=== PATIENT | female | born 1940 | race Caucasian/White ===

== ENCOUNTER 2019-12-03 18:43 | Inpatient (IN) | payer MEDICARE, BC, OTHER ==
[2019-12-03] MEDS ORDERED: Diltiazem 50 MG/10 ML SDV IVPUSH STA (19:21)
--- NOTE | 2019-12-03 19:28 | EDM.PDOC ---
ED HPI GENERAL MEDICAL PROBLEM - General Chief Complaint: Chest Pain Stated Complaint: [facility] Time Seen by Provider: 12/03/19 19:03 Source of Information: Reports: Patient History Limitations: Reports: No Limitations - History of Present Illness INITIAL COMMENTS - FREE TEXT/NARRATIVE: Mrs. Marrero is a very pleasant 79-year-old woman with a past medical history significant for paroxysmal atrial fibrillation, first diagnosed about 10 years ago, on Xarelto, but on no regular rate-limiting agent other than Cardizem 30 mg po BID that she is to take on an as-needed basis for a HR of >70, who now presents the ED by EMS after developing her typical symptoms of atrial fibrillation this morning, including both rapid and slow palpitations, sharp/heavy retrosternal chest pain, slight dyspnea on exertion, a headache, tingling of her fingers and toes, and watery diarrhea. She states that she gets these symptoms about every month, but that they typically last about 2 hours before resolving on their own. Today's is different, because it has persisted all day. The patient cannot recall if she took her Cardizem today or not. Here in the ED, the patient's initial BP is found to be low at 82/61, with tachycardia of 134 bpm. She is afebrile, saturating 100% on room air. Other than today's symptoms, the patient denies having a recent fever, chills, sore throat, ear pain, nasal or sinus congestion, cough, dyspnea, chest pain, palpitations, nausea, vomiting, constipation, diarrhea, abdominal pain, urinary symptoms, recent weight gain or weight loss, recent bloody bowel movements or black bowel movements, recent joint aches, headaches, or rashes. The patient's PCP is Dr. Angel Ashby, in [place]. She does not have a Sales Lead Generator. Left Chest Pain Score (Numeric/FACES): 3 - Related Data Allergies Allergy/AdvReac Type Severity Reaction Status Date / Time levofloxacin [From Levaquin] Allergy Severe COULDNT Verified 12/03/19 19:22 BREATH promethazine HCl Allergy Severe Anxiety Verified 12/03/19 19:22 [From Phenergan] CRAB Allergy Severe Hives Uncoded 12/03/19 19:22 GREEN DYE PILLS Allergy Severe Hives Uncoded 12/03/19 19:22 Home Meds: Home Meds Cholecalciferol (Vitamin D3) [Vitamin D3] 2,000 units PO DAILY 12/03/19 [Hist ory] Denosumab [Prolia] 60 mg IM ASDIRECTED 12/03/19 [History] Divalproex Sodium [Depakote] 250 mg PO BID 12/03/19 [History] Furosemide [Lasix] 40 mg PO DAILY 12/03/19 [History] Insulin Glargine,Hum.Rec.Anlog [Lantus Solostar] 18 units SUBCUT DAILY 12/03/19 [History] Ipratropium [Atrovent 0.06% Nasal [place]] 2 puff CARI QID PRN 12/03/19 [History] Morphine Sulfate [Morphine Sulfate ER] 15 mg PO DAILY PRN 12/03/19 [History] Olmesartan/Hydrochlorothiazide [Olmesartan-Hctz 40-25 mg Tab] 1 tab PO DAILY 12/03/19 [History] Omeprazole 20 mg PO DAILY PRN 12/03/19 [History] Ondansetron [Zofran] 4 mg PO TID PRN 12/03/19 [History] Rivaroxaban [Xarelto] 10 mg PO DAILY 12/03/19 [History] Thiamine HCl [Vitamin B-1] 50 mg PO DAILY 12/03/19 [History] buPROPion [buPROPion XL] 150 mg PO DAILY 12/03/19 [History] dilTIAZem HCL [Cardizem] 30 mg PO BID PRN 12/03/19 [History] lamoTRIgine [Lamotrigine] 50 mg PO BEDTIME 12/03/19 [History] polyethylene glycoL 3350 [MiraLAX] 17 gm PO DAILY PRN 12/03/19 [History] traZODone HCl [Trazodone HCl] 50 mg PO BEDTIME PRN 12/03/19 [History] Past Medical History Cardiovascular History: Reports: Afib (paroxysmal), Heart Failure (mild) Gastrointestinal History: Reports: GERD Musculoskeletal History: Reports: Osteoarthritis Neurological History: Reports: Neuropathy, Diabetic Psychiatric History: Reports: Anxiety, Depression, Other (See Below) (Insomnia) Endocrine/Metabolic History: Reports: Diabetes, Type II, Obesity/BMI 30+ Oncologic (Cancer) History: Reports: Bladder (s/p tumor excision), Pancreatic (s/p tail excision) - Past Surgical History HEENT Surgical History: Reports: Cataract Surgery (bilateral) Cardiovascular Surgical History: Reports: Other (See Below) (Left Port-A-Cath) Female Surgical History: Reports: Tubal Ligation Oncologic Surgical History: Reports: Other (See Below) (Bladder tumor excised. Tumor in tail of pancreas excised.) Social & Family History - Tobacco Use Smoking Status *Q: Never Smoker - Alcohol Use Alcohol Use History: No - Recreational Drug Use Recreational Drug Use: No - Living Situation & Occupation Living situation: Reports: , with Family Occupation: Retired ED ROS GENERAL - Review of Systems Review Of Systems: Comprehensive ROS is negative, except as noted in HPI. ED EXAM, GENERAL - Physical Exam Exam: See Below Exam Limited By: No Limitations General Appearance: Alert, WD/WN, No Apparent Distress Eye Exam: Bilateral Eye: EOMI, Normal Inspection Ears: Normal External Exam, Hearing Grossly Normal Nose: Normal Inspection Throat/Mouth: Normal Inspection, Normal Lips, Normal Voice, No Airway Compromise Head: Atraumatic, Normocephalic Neck: Normal Inspection, Full Range of Motion Respiratory/Chest: No Respiratory Distress, Lungs Clear, Normal Breath Sounds, No Accessory Muscle Use Cardiovascular: Normal Peripheral Pulses, No Gallop, No JVD, No Murmur, No Rub, Tachycardia, Irregularly Irregular Peripheral Pulses: 3+: Radial (L), Radial (R) GI/Abdominal: Normal Bowel Sounds, Soft, Non-Tender, No Organomegaly, No Distention, No Abnormal Bruit, No Mass (Female) Exam: Deferred Rectal (Female) Exam: Deferred Back Exam: Normal Inspection, Full Range of Motion, NT Extremities: Normal Inspection, Normal Range of Motion, Normal Capillary Refill Neurological: Alert, Oriented, Normal Cognition, No Motor/Sensory Deficits Psychiatric: Normal Affect Skin Exam: Warm, Dry, Intact, Normal Color, No Rash EKG INTERPRETATION EKG Date: 12/03/19 Time: 19:39 Rhythm: A-Fib Rate (Beats/Min): 125 [place]: Normal P-Wave: Present QRS: Normal ST-T: Normal QT: Prolonged (QTc 499 ms) Comparison: NA - No Prior EKG Course - Vital Signs Last Recorded V/S: Last Vital Signs Temp 36.9 C 12/03/19 19:01 Pulse 134 H 12/03/19 19:01 Resp 20 12/03/19 19:01 BP 82/61 L 12/03/19 19:01 Pulse Ox 100 12/03/19 19:01 - Orders/Labs/Meds Orders: Active Orders 24 hr Category Date Time Status Patient Status [ADT] Routine ADT 12/03/19 22:32 Active Bedrest Bathroom Privileges [RC] ASDIRECTED Care 12/03/19 22:31 Active Blood Glucose Check, Bedside [RC] TIDAC Care 12/03/19 22:31 Active Blood Glucose Check, Bedside [RC] TIDMEALS Care 12/03/19 22:31 Active Cardiac Monitoring [RC] CONTINUOUS Care 12/03/19 22:34 Active EKG Documentation Completion [RC] STAT Care 12/03/19 19:20 Active Height and Weight [RC] DAILY Care 12/03/19 22:31 Active Intake and Output [RC] QSHIFT Care 12/03/19 22:34 Active Oxygen Therapy [RC] PRN Care 12/03/19 22:32 Active Up With Assistance [RC] ASDIRECTED Care 12/03/19 22:31 Active VTE/DVT Education [RC] PER UNIT ROUTINE Care 12/03/19 22:32 Active Vital Signs [RC] Q2H Care 12/03/19 22:31 Active Consult to Case Management/Circuit Board Assembler [CONS] Cons 12/03/19 22:31 Active Routine OT Evaluation and Treatment [CONS] Routine Cons 12/03/19 22:31 Active PT Evaluation and Treatment [CONS] Routine Cons 12/03/19 22:31 Active Heart Healthy Diet [DIET] Diet 12/03/19 Breakfast Active Chest 2V [CR] Stat Exams 12/03/19 19:20 Taken BASIC METABOLIC PANEL,BMP [CHEM] AM Lab 12/04/19 05:11 Ordered CBC WITH AUTO DIFF [HEME] AM Lab 12/04/19 05:11 Ordered MAGNESIUM [CHEM] AM Lab 12/04/19 05:11 Ordered MAGNESIUM [CHEM] Stat Lab 12/03/19 22:31 Ordered PHOSPHORUS [CHEM] AM Lab 12/04/19 05:11 Ordered PHOSPHORUS [CHEM] Stat Lab 12/03/19 22:31 Ordered Diltiazem [Cardizem] 100 mg Med 12/03/19 22:15 Active Sodium Chloride 0.9% [Normal Saline] 100 ml IV TITRATE Ondansetron [Zofran] Med 12/03/19 22:31 Active 4 mg IV Q6H PRN Anticoagulation Contraindications VTE [AST] Per Unit Oth 12/03/19 22:31 Ordered Routine Resuscitation Status Routine Resus Stat 12/03/19 22:31 Ordered Medication Orders Diltiazem HCl 100 mg/ Sodium (Chloride) 100 mls @ 15 mls/hr IV TITRATE ALIYAH; Protocol Ondansetron HCl (Zofran) 4 mg IV Q6H PRN PRN Reason: Nausea/Vomiting Labs: Laboratory Tests 12/03/19 12/03/19 12/03/19 Range/Units 19:30 19:30 19:30 WBC 8.86 (3.98-10.04) K/mm3 RBC 3.77 L (3.98-5.22) M/mm3 Hgb 11.1 L (11.2-15.7) gm/dl Hct 34.6 (34.1-44.9) % MCV 91.8 (79.4-94.8) fl MCH 29.4 (25.6-32.2) pg MCHC 32.1 L (32.2-35.5) g/dl RDW Std Deviation 42.6 (36.4-46.3) fL Plt Count 403 H (182-369) K/mm3 MPV 10.1 (9.4-12.3) fl Neut % (Auto) 65.5 (34.0-71.1) % Lymph % (Auto) 24.7 (19.3-51.7) % [place] % (Auto) 9.3 (4.7-12.5) % Eos % (Auto) 0 L (0.7-5.8) Baso % (Auto) 0.3 (0.1-1.2) % Neut # (Auto) 5.80 (1.56-6.13) K/mm3 Lymph # (Auto) 2.19 (1.18-3.74) K/mm3 [place] # (Auto) 0.82 H (0.24-0.36) K/mm3 Eos # (Auto) 0.00 L (0.04-0.36) K/mm3 Baso # (Auto) 0.03 (0.01-0.08) K/mm3 Sodium 132 L (136-145) mEq/L Potassium 3.9 (3.5-5.1) mEq/L Chloride 96 L (98-107) mEq/L Carbon Dioxide 24 (21-32) mEq/L Anion Gap 15.9 H (5-15) BUN 25 H (7-18) mg/dL Creatinine 1.3 H (0.55-1.02) mg/dL Est Cr Clr Drug Dosing TNP Estimated GFR (MDRD) 39 (>60) mL/min BUN/Creatinine Ratio 19.2 H (14-18) Glucose 178 H (83-115) mg/dL Calcium 9.0 (8.5-10.1) mg/dL Magnesium 2.3 (1.8-2.4) mg/dl Total Bilirubin 0.2 (0.2-1.0) mg/dL AST 44 H (15-37) U/L ALT 170 H (14-59) U/L Alkaline Phosphatase 133 H (46-116) U/L Troponin I < 0.017 (0.00-0.056) ng/mL NT-Pro-B Natriuret Pep 351 (0-450) pg/mL Total Protein 7.2 (6.4-8.2) g/dl Albumin 3.4 (3.4-5.0) g/dl Globulin 3.8 gm/dL Albumin/Globulin Ratio 0.9 L (1-2) COVID-19 (JITENDRA) (NEGATIVE) 12/03/19 Range/Units 22:30 WBC (3.98-10.04) K/mm3 RBC (3.98-5.22) M/mm3 Hgb (11.2-15.7) gm/dl Hct (34.1-44.9) % MCV (79.4-94.8) fl MCH (25.6-32.2) pg MCHC (32.2-35.5) g/dl RDW Std Deviation (36.4-46.3) fL Plt Count (182-369) K/mm3 MPV (9.4-12.3) fl Neut % (Auto) (34.0-71.1) % Lymph % (Auto) (19.3-51.7) % [place] % (Auto) (4.7-12.5) % Eos % (Auto) (0.7-5.8) Baso % (Auto) (0.1-1.2) % Neut # (Auto) (1.56-6.13) K/mm3 Lymph # (Auto) (1.18-3.74) K/mm3 [place] # (Auto) (0.24-0.36) K/mm3 Eos # (Auto) (0.04-0.36) K/mm3 Baso # (Auto) (0.01-0.08) K/mm3 Sodium (136-145) mEq/L Potassium (3.5-5.1) mEq/L Chloride (98-107) mEq/L Carbon Dioxide (21-32) mEq/L Anion Gap (5-15) BUN (7-18) mg/dL Creatinine (0.55-1.02) mg/dL Est Cr Clr Drug Dosing Estimated GFR (MDRD) (>60) mL/min BUN/Creatinine Ratio (14-18) Glucose (83-115) mg/dL Calcium (8.5-10.1) mg/dL Magnesium (1.8-2.4) mg/dl Total Bilirubin (0.2-1.0) mg/dL AST (15-37) U/L ALT (14-59) U/L Alkaline Phosphatase (46-116) U/L Troponin I (0.00-0.056) ng/mL NT-Pro-B Natriuret Pep (0-450) pg/mL Total Protein (6.4-8.2) g/dl Albumin (3.4-5.0) g/dl Globulin gm/dL Albumin/Globulin Ratio (1-2) COVID-19 (JITENDRA) Negative (NEGATIVE) Meds: Medications Generic Name Dose Route Start Last Admin Trade Name Freq PRN Reason Stop Dose Admin Diltiazem HCl 100 mg/ Sodium 100 mls @ 15 mls/hr 12/03/19 22:15 Chloride IV TITRATE ALIYAH Protocol 15 MG/HR Ondansetron HCl 4 mg 12/03/19 22:31 Zofran IV Q6H PRN Nausea/Vomiting Discontinued Medications Generic Name Dose Route Start Last Admin Trade Name Freq PRN Reason Stop Dose Admin Diltiazem HCl 5 mg 12/03/19 19:21 12/03/19 19:33 Cardizem IVPUSH 12/03/19 19:22 5 mg ONETIME STA Administration Diltiazem HCl 100 mg/ Sodium 100 mls @ 10 mls/hr 12/03/19 19:30 12/03/19 22:10 Chloride IV 15 mg/hr TITRATE ALIYAH 15 mls/hr Titration Protocol 10 MG/HR Sodium Chloride 500 mls @ 1,000 mls/hr 12/03/19 19:29 12/03/19 19:39 Normal Saline IV 12/03/19 19:58 1,000 mls/hr .BOLUS ONE Administration Sodium Chloride 500 mls @ 1,000 mls/hr 12/03/19 21:54 12/03/19 22:33 Normal Saline IV 12/03/19 22:23 1,000 mls/hr .BOLUS ONE Administration - Re-Assessments/Exams Free Text/Narrative Re-Assessment/Exam: 12/03/19 19:22 As above, the patient has an approximately 10-year history of paroxysmal atrial fibrillation, on Xarelto, but not on a rate controlling agent on a regular basis, rather, she is prescribed Cardizem 30 mg po BID prn HR >70, now here for her usual symptoms of atrial fibrillation with RVR, including rapid palpitations, retrosternal chest pain, a headache, tingling of her fingers and toes, and watery diarrhea. She is hypotensive and tachycardic, and her manager endoscopy indicates rapid atrial fibrillation, however, she denies feeling lightheaded, therefore I am not certain that her blood pressure is accurate. Other than a rapid and irregularly irregular heart rate, her physical exam is unremarkable. I have ordered a work-up that includes blood work, a chest x-ray, and an ECG, and in the meantime, the patient will be given diltiazem 5 mg IVP, followed by a diltiazem drip at 10 mg/h. She will also be given a 500 mL bolus of IV fluid. 12/03/19 21:50 Two-view chest radiograph appears to be grossly normal. The cardiac silhouette is within normal limits. No pulmonary vascular congestion. No pleural effusions. No focal infiltrate. No pneumothorax. Left-sided Port-A-Cath noted. Formal read per the Radiologist pending. The patient's CBC is remarkable for a Hgb slightly depressed at 11.1, but with a Hct within normal limits at 34.6. Her platelets are mildly elevated at 403,000, with the remainder of her CBC being unremarkable. Her CMP is remarkable for a sodium mildly depressed at 132, and an anion gap mildly elevated at 15.9, but with a bicarbonate normal at 24. Her BUN/Cr are mildly elevated at 25/1.3. Her blood glucose is elevated at 178. Her AST/ALT are elevated at 44/170, respectively, and her alkaline phosphatase is mildly elevated at 133, with the remainder of her CMP being unremarkable. Her magnesium level is within normal limits at 2.3. Her troponin is undetectably low. Her BNP is within normal limits at 351. Following a 500 mL bolus of NS, the patient's BP is up to 104/75, with a HR of 107. She still appears to be in atrial fibrillation on the manager endoscopy. I will order a second 500 mL bolus of IV fluid and recommend admission to the hospital. 12/03/19 22:06 Test results and my plan to admit the patient discussed with the patient. The patient is agreeable. I will increase her diltiazem drip to 15 mg/h. Dr. Heard, already in the ED, is aware of the patient's admission, and will evaluate her shortly. Departure - Departure Time of Disposition: 22:06 Disposition: Admitted As Inpatient 65 Condition: Good Clinical Impression: Atrial fibrillation with rapid ventricular response, Hypotension, Hyperglycemia due to type 2 diabetes mellitus Sepsis Event Note (ED) - Evaluation Sepsis Screening Result: No Definite Risk - Focused Exam Vital Signs: Vital Signs Temp Pulse Resp BP Pulse Ox 12/03/19 19:01 36.9 C 134 H 20 82/61 L 100 - My Orders Last 24 Hours: My Active Orders 12/03/19 19:20 EKG Documentation Completion [RC] STAT Chest 2V [CR] Stat 12/03/19 22:15 Diltiazem [Cardizem] 100 mg Sodium Chloride 0.9% [Normal Saline] 100 ml IV TITRATE - Assessment/Plan Last 24 Hours: My Active Orders 12/03/19 19:20 EKG Documentation Completion [RC] STAT Chest 2V [CR] Stat 12/03/19 22:15 Diltiazem [Cardizem] 100 mg Sodium Chloride 0.9% [Normal Saline] 100 ml IV TITRATE
[2019-12-03] MEDS ORDERED: Sodium Chloride 0.9% 500 ML IV ONE ×2 (19:29→21:54)
[2019-12-03] MEDS ORDERED: Diltiazem 100 MG in Sodium Chloride 0.9% 100 ML IV SCH ×2 (19:30→22:15)
--- NOTE | 2019-12-03 22:15 | PCM.HP.2 ---
H&P History of Present Illness - General Date of Service: 12/03/19 Admit Problem/Dx: Atrial fibrillation with rapid ventricular rate - History of Present Illness Initial Comments - Free Text/Narative: This is an 79 year old female with past medical history of atrial fibrillation on Xarelto, diabetes and hypertension who comes to the ED brought via EMS for chest pain and palpitations as well as shortness of breath. As per patient she was in her usual state of health until this morning when she had some visitors and started feeling a strange sensation on her chest after which she decided to go lay down. Once she lay down she started noticing significant chest pain, described as stabbing, located retrosternally without radiation, graded 4-5/10, associated with shortness of breath and palpitations. EMS was called, upon arrival patient had a BP of 69/47 with pulse of 157. En route VS BP 74/50, rate 126. Left Chest Pain Score (Numeric/FACES): 3 - Related Data Allergies/Adverse Reactions: Allergies Allergy/AdvReac Type Severity Reaction Status Date / Time levofloxacin [From Levaquin] Allergy Severe COULDNT Verified 12/03/19 19:22 BREATH promethazine HCl Allergy Severe Anxiety Verified 12/03/19 19:22 [From Phenergan] CRAB Allergy Severe Hives Uncoded 12/03/19 19:22 GREEN DYE PILLS Allergy Severe Hives Uncoded 12/03/19 19:22 Home Medications: Home Meds Ipratropium [Atrovent 0.06% Nasal [place]] 2 puff CARI QID PRN 12/03/19 [History] buPROPion [buPROPion XL] 150 mg PO DAILY 12/03/19 [History] dilTIAZem HCL [Cardizem] 30 mg PO BID PRN 12/03/19 [History] Past Medical History HEENT History: Reports: Impaired Vision Cardiovascular History: Reports: Afib (paroxysmal), Heart Failure (mild) Gastrointestinal History: Reports: GERD Other Gastrointestinal History: Pancreatic cancer Genitourinary History: Reports: Diabetic Nephropathy MAGNETIC OBSERVER History: Reports: Musculoskeletal History: Reports: Osteoarthritis Neurological History: Reports: Neuropathy, Diabetic Psychiatric History: Reports: Anxiety, Depression, Other (See Below) (Insomnia) Endocrine/Metabolic History: Reports: Diabetes, Type II, Obesity/BMI 30+ Oncologic (Cancer) History: Reports: Bladder (s/p tumor excision), Pancreatic (s/p tail excision) - Infectious Disease History Infectious Disease History: Reports: Chicken Pox, Measles - Past Surgical History HEENT Surgical History: Reports: Cataract Surgery (bilateral) Cardiovascular Surgical History: Reports: Other (See Below) (Left Port-A-Cath) Female Surgical History: Reports: Tubal Ligation Oncologic Surgical History: Reports: Other (See Below) (Bladder tumor excised. Tumor in tail of pancreas excised.) Social & Family History - Family History Family Medical History: Noncontributory - Tobacco Use Smoking Status *Q: Never Smoker - Recreational Drug Use Recreational Drug Use: No - Living Situation & Occupation Living situation: Reports: , with Family Occupation: Retired H&P Review of Systems - Review of Systems: Review Of Systems: See Below General: Denies: Fever, Chills, Malaise, Weakness, Fatigue, Night Sweats, [place] phoresis, Decreased Appetite, Weight Loss, Weight Gain HEENT: Denies: Post Nasal Drip, Sinus Congestion, Sore Throat, Vertigo, Visual Changes Pulmonary: Reports: Shortness of Breath. Denies: Wheezing, Pleuritic Chest Pain, Cough, Sputum, Hemoptysis Cardiovascular: Reports: Chest Pain, Palpitations. Denies: Dyspnea on Exertion, Orthopnea, PND, Edema, Lightheadedness, Syncope, Claudication, Blood Pressure Problem Gastrointestinal: Denies: Abdominal Pain, Anorexia, Black Stool, Bloody Stool, Constipation, Diarrhea, Decreased Appetite, Difficulty Swallowing, Distension, Flatus, Hematemesis, Hematochezia, Melena, Mucous in Stool, Nausea, Stool Incontinence, Vomiting Genitourinary: Denies: Dysuria, Frequency, Burning, Pain, Urgency, Incontinence Musculoskeletal: Denies: Joint Pain, Joint Swelling, Muscle Pain, Muscle Stiffness Skin: Reports: Pallor, Diaphoresis. Denies: Cyanosis, Jaundice, Mottled, Dryness, Bruising Psychiatric: Denies: Confusion, Depression, Mood Lability, Anxiety, Agitation Neurological: Denies: Dizziness, Headache, Numbness, Paresthesia Hematologic/Lymphatic: Denies: Anemia, Easy Bleeding, Easy Bruising Exam - Exam Exam: See Below - Vital Signs Vital Signs: Last Vital Signs Temp 98.5 F 12/03/19 19:01 Pulse 134 H 08/18/20 19:01 Resp 20 12/03/19 19:01 BP 82/61 L 12/03/19 19:01 Pulse Ox 100 12/03/19 19:01 - Exam General: Alert, Oriented, Cooperative. No: Mild Distress HEENT: Conjunctiva Clear, EACs Clear, EOMI, Hearing Intact, Mucosa Moist & [place] Neck: Supple, Trachea Midline, +2 Carotid Pulse wo Bruit, Full Range of Motion. No: Lymphadenopathy, Carotid Bruit, Thyromegaly Lungs: Clear to Auscultation, Normal Respiratory Effort. No: Decreased Breath Sounds, Crackles, Rales, Rhonchi, Rub, Stridor, Wheezing Cardiovascular: Regular Rate, Regular Rhythm. No: Systolic Murmur, Diastolic Murmur, Rubs, Gallop/S3, Gallop/S4 GI/Abdominal Exam: Normal Bowel Sounds, Soft, Non-Tender, Distended. No: Guarding, Rigid, Rebound Extremities: Normal Inspection, Normal Range of Motion, Non-Tender, Normal Capillary Refill, Pedal Edema Peripheral Pulses: 2+: Radial (L), Radial (R), Dorsalis Pedis (L), Dorsalis Pedis (R) Skin: Warm, Dry, Intact Neuro Extensive - Mental Status: Alert, Oriented x3 - Patient Data Result Diagrams: 12/03/19 19:30 12/03/19 19:30 Sepsis Event Note - Evaluation Sepsis Screening Result: No Definite Risk - Focused Exam Vital Signs: Vital Signs Temp Pulse Resp BP Pulse Ox 12/03/19 19:01 98.5 F 134 H 20 82/61 L 100 - Problem List (1) Atrial fibrillation with rapid ventricular response SNOMED Code(s): 929246850547871 ICD Code: I48.91 - UNSPECIFIED ATRIAL FIBRILLATION Status: Acute Current Visit: Yes (2) Diabetes mellitus, type II SNOMED Code(s): 80523694 ICD Code: E11.9 - TYPE 2 DIABETES MELLITUS WITHOUT COMPLICATIONS Status: Acute Current Visit: Yes (3) Hypertension SNOMED Code(s): 07505068 ICD Code: I10 - ESSENTIAL (PRIMARY) HYPERTENSION Status: Acute Current Visit: Yes (4) Depression SNOMED Code(s): 51469591 ICD Code: F32.9 - MAJOR DEPRESSIVE DISORDER, SINGLE EPISODE, UNSPECIFIED Status: Acute Current Visit: Yes (5) Chronic anticoagulation SNOMED Code(s): 865345989 ICD Code: Z79.01 - IGNITER CAPPER (CURRENT) USE OF ANTICOAGULANTS Status: Acute Current Visit: Yes (6) Chronic headache SNOMED Code(s): 955502810 ICD Code: R51 - HEADACHE Status: Acute Current Visit: Yes (7) Heart failure SNOMED Code(s): 89818581 ICD Code: I50.9 - HEART FAILURE, UNSPECIFIED Status: Acute Current Visit: Yes (8) Hypotension SNOMED Code(s): 52679272 ICD Code: I95.9 - HYPOTENSION, UNSPECIFIED Status: Acute Current Visit: Yes Problem List Initiated/Reviewed/Updated: Yes Assessment/Plan Comment:: Atrial fibrillation with rapid ventricular response Once in the ED patient with VS 82/61, HR 134x', SatO2 100% on RA Given 5mg bolus of Cardizem Started on Cardizem drip Has been compliant with medications at home EKG with rate between 120-130 PLAN - Continue Cardizem drip - Transition to PO once rate controlled - Request prior echocardiogram - Continue Xarelto Diabetes mellitus, type II Glucose on admission 178 On Lantus 23u AM PLAN - HbA1c - Glucose checks before meals and 2h after - Hypoglycemia protocol - Continue home insulin 12u for now Hypotension in the setting of hypertension BP on admission 82/61 PLAN - Hold home medications for now Depression Denies any suicidal or homicidal ideation Home management with bupropion and trazodone PLAN - Continue home medications Chronic headache On Depakote and Lamotrigine at home No pain right now PLAN - Continue home medications Heart failure, unknown EF No signs of volume overload On Lasix at home PLAN - Hold Lasix due to hypotension - Request prior records PROPHYLAXIS DVT- Continue Xarelto GI- not indicated CODE STATUS: FULL CODE DISPOSITION: Patient will be admitted to the ICU on Cardizem drip for rate control. SOCIAL: Patient lives between [place] and [facility] with house mate Daughter lives across the yard PCP is Dr. Ashby No COVID exposure and has been doing social distancing. - Mortality Measure Prognosis:: Good
[2019-12-03] MEDS ORDERED: Ondansetron 4 MG/2 ML SDV IV PRN (22:31)
[2019-12-04] MEDS: Acetaminophen 325 MG Tab PO PRN ×2 (00:18→04:35)
[2019-12-04] MEDS ORDERED: LORazepam 2 MG/ML SDV IVPUSH ONE (02:32)
[2019-12-04] MEDS: traZODone 50 MG Tab PO PRN ×2 (02:46→20:32)
[2019-12-04] MEDS: Morphine 10 MG/0.5 ML Oral Syringe PO SCH ×4 (03:36→22:12)
[2019-12-04] MEDS ORDERED: Gabapentin 100 MG Cap PO STA (04:28)
--- NOTE | 2019-12-04 09:00 | CR ---
Chest: 2 views of the chest are obtained. Comparison: No prior chest imaging is available. Heart size and mediastinum are normal. Lungs are clear with no acute parenchymal change. Left-sided infusion port is seen. Minimal degenerative change is scattered within the spine with slight scoliosis. Impression: 1. Findings as noted above. 2. Nothing acute is appreciated. Diagnostic code #2 This report was dictated in MDT
[2019-12-04] MEDS: Diltiazem IR 30 MG Tab PO SCH ×2 (12:55→20:32)
--- NOTE | 2019-12-04 14:01 | PCM.PN ---
- General Info Date of Service: 12/04/19 Subjective Update: Feeling OK Tolerating diet No more shortness of breath or chest pain Slept OK BM yesterday - Patient Data Vitals - Most Recent: Last Vital Signs Temp 98 F 12/04/19 12:00 Pulse 134 H 12/03/19 19:01 Resp 16 12/04/19 14:00 BP 116/73 12/04/19 14:00 Pulse Ox 92 L 12/04/19 14:00 Weight - Most Recent: 75.024 kg - Exam General: Alert, Oriented, Cooperative, No Acute Distress HEENT: Pupils Equal, Pupils Reactive, EOMI, Mucous Membr. Moist/[place] Neck: Supple, Trachea Midline, No JVD, No Thyromegaly, +2 Carotid Pulse wo Bruit. No: Lymphadenopathy Lungs: Clear to Auscultation, Normal Respiratory Effort. No: Decreased Breath Sounds, Crackles, Rales, Rhonchi, Rub, Stridor, Wheezing Cardiovascular: Irregular Rhythm, Bradycardia, Tachycardia. No: Murmurs, Gallops, Rubs GI/Abdominal Exam: Normal Bowel Sounds, Soft, Non-Tender, Distended. No: Guarding, Rigid, Rebound, Tender Extremities: Normal Inspection, Non-Tender, Pedal Edema Peripheral Pulses: 2+: Radial (L), Radial (R), Dorsalis Pedis (L), Dorsalis Pedis (R) Neurological: No New Focal Deficit Psy/Mental Status: Alert, Normal Affect, Normal Mood Sepsis Event Note - Evaluation Sepsis Screening Result: No Definite Risk - Problem List & Annotations (1) Atrial fibrillation with rapid ventricular response SNOMED Code(s): 494460678891893 Code(s): I48.91 - UNSPECIFIED ATRIAL FIBRILLATION Status: Acute Current Visit: Yes (2) Diabetes mellitus, type II SNOMED Code(s): 01821734 Code(s): E11.9 - TYPE 2 DIABETES MELLITUS WITHOUT COMPLICATIONS Status: Acute Current Visit: Yes (3) Hypertension SNOMED Code(s): 56719818 Code(s): I10 - ESSENTIAL (PRIMARY) HYPERTENSION Status: Acute Current Visit: Yes (4) Depression SNOMED Code(s): 63013381 Code(s): F32.9 - MAJOR DEPRESSIVE DISORDER, SINGLE EPISODE, UNSPECIFIED Status: Acute Current Visit: Yes (5) Chronic anticoagulation SNOMED Code(s): 196709938 Code(s): Z79.01 - SENIOR LIVING (CURRENT) USE OF ANTICOAGULANTS Status: Acute Current Visit: Yes (6) Chronic headache SNOMED Code(s): 403743632 Code(s): R51 - HEADACHE Status: Acute Current Visit: Yes (7) Heart failure SNOMED Code(s): 41103241 Code(s): I50.9 - HEART FAILURE, UNSPECIFIED Status: Acute Current Visit: Yes (8) Hypotension SNOMED Code(s): 63381190 Code(s): I95.9 - HYPOTENSION, UNSPECIFIED Status: Acute Current Visit: Yes (9) Microcytic hypochromic anemia SNOMED Code(s): 84747815 Code(s): D50.9 - IRON DEFICIENCY ANEMIA, UNSPECIFIED Status: Acute Current Visit: Yes (10) Acute kidney injury SNOMED Code(s): 59891895, 37498812 Code(s): N17.9 - ACUTE KIDNEY FAILURE, UNSPECIFIED Status: Acute Current Visit: Yes (11) Hyponatremia SNOMED Code(s): 55052503 Code(s): E87.1 - HYPO-OSMOLALITY AND HYPONATREMIA Status: Acute Current Visit: Yes - Problem List Review Problem List Initiated/Reviewed/Updated: Yes - Assessment Assessment:: 12/03/2019 Atrial fibrillation with rapid ventricular response Once in the ED patient with VS 82/61, HR 134x', SatO2 100% on RA Given 5mg bolus of Cardizem Started on Cardizem drip Has been compliant with medications at home EKG with rate between 120-130 Diabetes mellitus, type II Glucose on admission 178 On Lantus 23u AM Hypotension in the setting of hypertension BP on admission 82/61 Depression Denies any suicidal or homicidal ideation Home management with bupropion and trazodone Chronic headache On Depakote and Lamotrigine at home No pain right now Heart failure, unknown EF No signs of volume overload On Lasix at home PLAN Patient will be admitted to the ICU on Cardizem drip for rate control. - Continue Cardizem drip - Transition to PO once rate controlled - Request prior echocardiogram - Continue Xarelto - HbA1c - Glucose checks before meals and 2h after - Hypoglycemia protocol - Continue home insulin 12u for now - Hold Lasix due to hypotension 12/04/2019 Continued drip throughout the night, tapered down to 5 this AM Symptoms have been resolved VS trend - BP 82-120/53-84 - Tmax 98.5 - HR 74-101 Labs - WBC 8.86 up to 11.57, few reactive lymphocytes - Hb 11.1 down to 10.5 - Na 132 up to 133 - K 3.9 down to 3.5 - GFR 39 down to 36 - Glucose trend 142-165 Heart healthy diet Home management with PRN Cardizem Patient had leg pain and restless leg overnight that resolved with gabapentin - Plan Plan:: Atrial fibrillation with rapid ventricular response Heart failure, unknown EF - Continue Cardizem drip and transition to PO during the day - Adjust Xarelto to indicated dose - Request prior echocardiogram - Follow-up with cardiology as an outpatient Microcytic hypochromic anemia - Anemia work-up Diabetes mellitus, type II - HbA1c - Glucose checks before meals and 2h after - Hypoglycemia protocol - Continue home insulin 12u for now - Add consistent carb diet to heart healthy Hypotension in the setting of hypertension - Hold home medications for now Depression - Continue home medications Chronic headache - Continue home medications PROPHYLAXIS DVT- Continue Xarelto GI- not indicated CODE STATUS: FULL CODE DISPOSITION: Patient will remain in ICU for Cardizem drip taper.
[2019-12-04] MEDS: Rivaroxaban 15 MG Tab PO SCH (18:17)
[2019-12-05] MEDS: Acetaminophen 325 MG Tab PO PRN ×2 (02:27→19:52)
[2019-12-05] MEDS: Morphine 10 MG/0.5 ML Oral Syringe PO SCH ×3 (05:15→21:29)
[2019-12-05] MEDS: Diltiazem IR 30 MG Tab PO SCH (06:33)
[2019-12-05] MEDS: Metoprolol Tartrate 25 MG Tab PO SCH ×2 (09:10→20:08)
[2019-12-05] MEDS ORDERED: Polyethylene Glycol 3350 Powder 17 GM Packet PO PRN (09:46)
[2019-12-05] MEDS ORDERED: Morphine 15 MG Tab.ER PO PRN (09:46)
[2019-12-05] MEDS ORDERED: Ondansetron 4 MG Tab.DIS PO PRN (09:54)
[2019-12-05] MEDS: Divalproex Sodium Delayed-Release 250 MG Tab.CR PO SCH ×2 (10:43→21:27)
[2019-12-05] MEDS: Thiamine 100 MG Tab PO SCH (10:44)
[2019-12-05] MEDS: buPROPion 150 MG Tab.ER PO SCH (10:44)
[2019-12-05] MEDS: Insulin Lispro 100 Units/ML 3 ML Vial SUBCUT SCH ×3 (10:47→21:30)
[2019-12-05 11:00] LABS: HEMOGLOBIN A1C 8.1 % (4.50-6.20)
[2019-12-05] MEDS: Insulin Glarg,Human.Rec.Analog 100 Unit/ML SUBCUT SCH (11:11)
--- NOTE | 2019-12-05 14:19 | PCM.PN ---
- General Info Date of Service: 12/05/19 Admission Dx/Problem (Free Text): Atrial fibrillation with rapid ventricular rate Subjective Update: Dena is without complaints. She slept well and she is tolerating her diet. Overnight her heart rate was in the 40s with an episode down into the 30s. She is currently getting Cardizem 30 mg 3 times daily. She has converted back to sinus rhythm. Functional Status: Reports: Pain Controlled - Review of Systems General: Reports: No Symptoms HEENT: Reports: No Symptoms Pulmonary: Reports: No Symptoms Cardiovascular: Reports: No Symptoms Gastrointestinal: Reports: No Symptoms Musculoskeletal: Reports: No Symptoms Neurological: Reports: No Symptoms Psychiatric: Reports: No Symptoms - Patient Data Vitals - Most Recent: Last Vital Signs Temp 97.6 F 12/05/19 08:00 Pulse 65 12/05/19 09:10 Resp 19 12/05/19 08:00 BP 132/66 12/05/19 09:10 Pulse Ox 97 12/05/19 08:00 Weight - Most Recent: 75.75 kg I&O - Last 24 Hours: Intake & Output 12/04/19 12/05/19 12/05/19 22:59 06:59 14:59 Intake Total 300 800 100 Output Total 600 550 Balance -300 250 100 Lab Results Last 24 Hours: Laboratory Results - last 24 hr 12/04/19 12/05/19 12/05/19 Range/Units 17:47 10:11 10:11 WBC 8.22 (3.98-10.04) K/mm3 RBC 3.41 L (3.98-5.22) M/mm3 Hgb 9.9 L (11.2-15.7) gm/dl Hct 31.9 L (34.1-44.9) % MCV 93.5 (79.4-94.8) fl MCH 29.0 (25.6-32.2) pg MCHC 31.0 L (32.2-35.5) g/dl RDW Std Deviation 45.0 (36.4-46.3) fL Plt Count 366 (182-369) K/mm3 MPV 9.9 (9.4-12.3) fl Neut % (Auto) 49.9 (34.0-71.1) % Lymph % (Auto) 31.9 (19.3-51.7) % Gage % (Auto) 14.2 H (4.7-12.5) % Eos % (Auto) 2.8 (0.7-5.8) Baso % (Auto) 1.0 (0.1-1.2) % Neut # (Auto) 4.10 (1.56-6.13) K/mm3 Lymph # (Auto) 2.62 (1.18-3.74) K/mm3 Gage # (Auto) 1.17 H (0.24-0.36) K/mm3 Eos # (Auto) 0.23 (0.04-0.36) K/mm3 Baso # (Auto) 0.08 (0.01-0.08) K/mm3 Sodium 134 L (136-145) mEq/L Potassium 4.1 (3.5-5.1) mEq/L Chloride 100 (98-107) mEq/L Carbon Dioxide 26 (21-32) mEq/L Anion Gap 12.1 (5-15) BUN 21 H (7-18) mg/dL Creatinine 1.2 H (0.55-1.02) mg/dL Est Cr Clr Drug Dosing 26.86 mL/min Estimated GFR (MDRD) 43 (>60) mL/min BUN/Creatinine Ratio 17.5 (14-18) Glucose 228 H (83-115) mg/dL POC Glucose 155 H (83-110) mg/dL Hemoglobin A1c (4.50-6.20) % Calcium 8.0 L (8.5-10.1) mg/dL Phosphorus 2.8 (2.6-4.7) mg/dL Magnesium 2.1 (1.8-2.4) mg/dl Total Bilirubin 0.3 (0.2-1.0) mg/dL AST 26 (15-37) U/L ALT 93 H (14-59) U/L Alkaline Phosphatase 94 (46-116) U/L Total Protein 6.4 (6.4-8.2) g/dl Albumin 3.2 L (3.4-5.0) g/dl Globulin 3.2 gm/dL Albumin/Globulin Ratio 1.0 (1-2) 12/05/19 12/05/19 Range/Units 10:11 10:44 WBC (3.98-10.04) K/mm3 RBC (3.98-5.22) M/mm3 Hgb (11.2-15.7) gm/dl Hct (34.1-44.9) % MCV (79.4-94.8) fl MCH (25.6-32.2) pg MCHC (32.2-35.5) g/dl RDW Std Deviation (36.4-46.3) fL Plt Count (182-369) K/mm3 MPV (9.4-12.3) fl Neut % (Auto) (34.0-71.1) % Lymph % (Auto) (19.3-51.7) % Gage % (Auto) (4.7-12.5) % Eos % (Auto) (0.7-5.8) Baso % (Auto) (0.1-1.2) % Neut # (Auto) (1.56-6.13) K/mm3 Lymph # (Auto) (1.18-3.74) K/mm3 Gage # (Auto) (0.24-0.36) K/mm3 Eos # (Auto) (0.04-0.36) K/mm3 Baso # (Auto) (0.01-0.08) K/mm3 Sodium (136-145) mEq/L Potassium (3.5-5.1) mEq/L Chloride (98-107) mEq/L Carbon Dioxide (21-32) mEq/L Anion Gap (5-15) BUN (7-18) mg/dL Creatinine (0.55-1.02) mg/dL Est Cr Clr Drug Dosing mL/min Estimated GFR (MDRD) (>60) mL/min BUN/Creatinine Ratio (14-18) Glucose (83-115) mg/dL POC Glucose 213 H (83-110) mg/dL Hemoglobin A1c 8.10 H (4.50-6.20) % Calcium (8.5-10.1) mg/dL Phosphorus (2.6-4.7) mg/dL Magnesium (1.8-2.4) mg/dl Total Bilirubin (0.2-1.0) mg/dL AST (15-37) U/L ALT (14-59) U/L Alkaline Phosphatase (46-116) U/L Total Protein (6.4-8.2) g/dl Albumin (3.4-5.0) g/dl Globulin gm/dL Albumin/Globulin Ratio (1-2) Med Orders - Current: Current Medications Acetaminophen (Tylenol) 650 mg PO Q4H PRN PRN Reason: Pain/Fever Last Admin: 12/05/19 02:27 Dose: 650 mg Documented by: Bupropion HCl (Wellbutrin Xl) 150 mg PO DAILY [facility] Last Admin: 12/05/19 10:44 Dose: 150 mg Documented by: Divalproex Sodium (Divalproex Sodium) 250 mg PO BID [facility] Last Admin: 12/05/19 10:43 Dose: 250 mg Documented by: Furosemide (Lasix) 40 mg PO DAILY [facility] Insulin Glargine (Lantus) 18 unit SUBCUT DAILY [facility] Last Admin: 12/05/19 11:11 Dose: 18 units Documented by: Insulin Human Lispro (Humalog) 0 unit SUBCUT QIDACANDBED [facility]; Protocol Last Admin: 12/05/19 10:47 Dose: 2 units Documented by: Lamotrigine (Lamotrigine) 50 mg PO BEDTIME [facility] Metoprolol Tartrate (Lopressor) 12.5 mg PO Q12H [facility] Last Admin: 12/05/19 09:10 Dose: 12.5 mg Documented by: Morphine Sulfate (Morphine 10 Mg/0.5 Ml Oral Syringe) 5 mg PO Q8HR [facility] Last Admin: 12/05/19 13:25 Dose: 5 mg Documented by: Morphine Sulfate (Ms Contin) 15 mg PO DAILY PRN PRN Reason: Pain Ondansetron HCl (Zofran) 4 mg IV Q6H PRN PRN Reason: Nausea/Vomiting Ondansetron HCl (Zofran Odt) 4 mg PO TID PRN PRN Reason: Nausea Polyethylene Glycol (Miralax) 17 gm PO DAILY PRN PRN Reason: Constipation Rivaroxaban (Xarelto) 15 mg PO WITHDINNER [facility] Last Admin: 12/04/19 18:17 Dose: 15 mg Documented by: Thiamine HCl (Vitamin B-1) 50 mg PO DAILY [facility] Last Admin: 12/05/19 10:44 Dose: 50 mg Documented by: Trazodone HCl (Trazodone) 50 mg PO BEDTIME PRN PRN Reason: Insomnia Last Admin: 12/04/19 20:32 Dose: 50 mg Documented by: Discontinued Medications Diltiazem HCl (Cardizem) 5 mg IVPUSH ONETIME STA Stop: 12/03/19 19:22 Last Admin: 12/03/19 19:33 Dose: 5 mg Documented by: Diltiazem HCl (Cardizem) 30 mg PO Q8H [facility] Last Admin: 12/05/19 06:33 Dose: Not Given Documented by: Gabapentin (Neurontin) 200 mg PO ONETIME STA Stop: 12/04/19 04:29 Last Admin: 12/04/19 04:35 Dose: 200 mg Documented by: Diltiazem HCl 100 mg/ Sodium (Chloride) 100 mls @ 10 mls/hr IV TITRATE [facility]; Protocol Last Titration: 12/03/19 22:10 Dose: 15 mg/hr, 15 mls/hr Documented by: Sodium Chloride (Normal Saline) 500 mls @ 1,000 mls/hr IV .BOLUS ONE Stop: 12/03/19 19:58 Last Admin: 12/03/19 19:39 Dose: 1,000 mls/hr Documented by: Sodium Chloride (Normal Saline) 500 mls @ 1,000 mls/hr IV .BOLUS ONE Stop: 12/03/19 22:23 Last Admin: 12/03/19 22:33 Dose: 1,000 mls/hr Documented by: Diltiazem HCl 100 mg/ Sodium (Chloride) 100 mls @ 15 mls/hr IV TITRATE [facility]; Protocol Last Titration: 12/04/19 14:05 Dose: 0 mg/hr, 0 mls/hr Documented by: Lorazepam (Ativan) 0.5 mg IVPUSH ONETIME ONE Stop: 12/04/19 02:33 Last Admin: 12/04/19 02:46 Dose: 0.5 mg Documented by: - Exam General: Alert, Oriented HEENT: Pupils Equal, Mucous Membr. Moist/[place] Neck: Supple Lungs: Clear to Auscultation, Normal Respiratory Effort Cardiovascular: Regular Rhythm, Bradycardia GI/Abdominal Exam: Normal Bowel Sounds, Soft, Non-Tender, No Organomegaly, No Distention, No Abnormal Bruit Extremities: Normal Inspection, Normal Range of Motion, Non-Tender, No Pedal Edema, Normal Capillary Refill Skin: Warm, Dry, Intact Neurological: No New Focal Deficit Psy/Mental Status: Alert, Normal Affect, Normal Mood Sepsis Event Note - Evaluation Sepsis Screening Result: No Definite Risk - Focused Exam Vital Signs: Vital Signs Temp Pulse Resp BP BP BP Pulse Ox 12/05/19 09:10 65 132/66 12/05/19 08:00 97.6 F 19 132/66 97 12/05/19 04:00 97.8 F 18 128/55 L 100 - Problem List & Annotations (1) Normocytic anemia SNOMED Code(s): 629462304 Code(s): D64.9 - ANEMIA, UNSPECIFIED Status: Acute Current Visit: Yes (2) Acute kidney injury SNOMED Code(s): 61057347, 10741918 Code(s): N17.9 - ACUTE KIDNEY FAILURE, UNSPECIFIED Status: Acute Current Visit: Yes (3) Atrial fibrillation with rapid ventricular response SNOMED Code(s): 088914191287393 Code(s): I48.91 - UNSPECIFIED ATRIAL FIBRILLATION Status: Acute Current Visit: Yes (4) Chronic anticoagulation SNOMED Code(s): 547719470 Code(s): Z79.01 - SKILLED NURSING (CURRENT) USE OF ANTICOAGULANTS Status: Acute Current Visit: Yes (5) Hyperglycemia due to type 2 diabetes mellitus SNOMED Code(s): 557958649203563, 203917756551092 Code(s): E11.65 - TYPE 2 DIABETES MELLITUS WITH HYPERGLYCEMIA Status: Acute Current Visit: Yes (6) Hyponatremia SNOMED Code(s): 97801413 Code(s): E87.1 - HYPO-OSMOLALITY AND HYPONATREMIA Status: Acute Current Visit: Yes - Problem List Review Problem List Initiated/Reviewed/Updated: Yes - My Orders Last 24 Hours: My Active Orders 12/05/19 08:29 Patient Status [ADT] Routine 12/05/19 09:00 Metoprolol Tartrate [Lopressor] 12.5 mg PO Q12H 12/05/19 09:46 Morphine [MS Contin] 15 mg PO DAILY PRN polyethylene glycoL 3350 [MiraLAX] 17 gm PO DAILY PRN 12/05/19 09:54 Ondansetron [Zofran ODT] 4 mg PO TID PRN 12/05/19 10:00 Divalproex Sodium 250 mg PO BID Thiamine [Vitamin B-1] 50 mg PO DAILY buPROPion [Wellbutrin XL] 150 mg PO DAILY 12/05/19 11:00 Insulin Glarg,Human.Rec.Analog [LantUS] 18 unit SUBCUT DAILY Insulin Lispro [HumaLOG] See Protocol SUBCUT QIDACANDBED 12/05/19 21:00 lamoTRIgine 50 mg PO BEDTIME 12/06/19 09:00 Furosemide [Lasix] 40 mg PO DAILY - Assessment Assessment:: 12/03/2019 Atrial fibrillation with rapid ventricular response Once in the ED patient with VS 82/61, HR 134x', SatO2 100% on RA Given 5mg bolus of Cardizem Started on Cardizem drip Has been compliant with medications at home EKG with rate between 120-130 Diabetes mellitus, type II Glucose on admission 178 On Lantus 23u AM Hypotension in the setting of hypertension BP on admission 82/61 Depression Denies any suicidal or homicidal ideation Home management with bupropion and trazodone Chronic headache On Depakote and Lamotrigine at home No pain right now Heart failure, unknown EF No signs of volume overload On Lasix at home PLAN Patient will be admitted to the ICU on Cardizem drip for rate control. - Continue Cardizem drip - Transition to PO once rate controlled - Request prior echocardiogram - Continue Xarelto - HbA1c - Glucose checks before meals and 2h after - Hypoglycemia protocol - Continue home insulin 12u for now - Hold Lasix due to hypotension 12/04/2019 Continued drip throughout the night, tapered down to 5 this AM Symptoms have been resolved VS trend - BP 82-120/53-84 - Tmax 98.5 - HR 74-101 Labs - WBC 8.86 up to 11.57, few reactive lymphocytes - Hb 11.1 down to 10.5 - Na 132 up to 133 - K 3.9 down to 3.5 - GFR 39 down to 36 - Glucose trend 142-165 Heart healthy diet Home management with PRN Cardizem Patient had leg pain and restless leg overnight that resolved with gabapentin 12/05/2019 Patient is off Cardizem drip Cardizem 30 mg IR every 8 hours is causing heart rates in the low 40s and 30s overnight. 5:00 dose had to be held. Sodium increased to 134. Renal function improved with an estimated GFR of 43 and creatinine of 1.2. Potassium, magnesium, and phosphorus are normal WBC back to normal Tolerating diet. Back in sinus rhythm. No complaints of leg pain. Normocytic anemia likely secondary to anemia of chronic disease and renal insufficiency - Plan Plan:: Atrial fibrillation with rapid ventricular response Heart failure, unknown EF -Switch from Cardizem to metoprolol tartrate 12.5 mg daily because of bradycardia on Cardizem -Continue Xarelto at 15 mg daily. - Request prior echocardiogram - Follow-up with cardiology as an outpatient Normocytic anemia -Likely secondary to anemia of chronic disease and renal insufficiency Diabetes mellitus, type II Renal insufficiency - HbA1c - Glucose checks before meals and 2h after -Restart home Lantus -Sliding scale insulin - Hypoglycemia protocol - Add consistent carb diet to heart healthy Hypotension in the setting of hypertension - Hold home medications for now Depression - Continue home medications Chronic headache - Continue home medications PROPHYLAXIS DVT- Continue Xarelto GI- not indicated CODE STATUS: FULL CODE DISPOSITION: Patient will remain changed to MedSurg status. Plan to discharge home tomorrow if rate and blood pressure are well controlled.
[2019-12-05] MEDS: Rivaroxaban 15 MG Tab PO SCH (17:33)
[2019-12-05] MEDS ORDERED: lamoTRIgine 100 MG Tab PO SCH (21:00)
[2019-12-05] MEDS: traZODone 50 MG Tab PO PRN (21:26)
[2019-12-06] MEDS: Acetaminophen 325 MG Tab PO PRN ×2 (01:54→09:33)
[2019-12-06] MEDS: Morphine 10 MG/0.5 ML Oral Syringe PO SCH (05:02)
[2019-12-06] MEDS: Insulin Lispro 100 Units/ML 3 ML Vial SUBCUT SCH ×2 (08:47→12:47)
[2019-12-06] MEDS ORDERED: Furosemide 40 MG Tab PO SCH (09:00)
[2019-12-06] MEDS: Divalproex Sodium Delayed-Release 250 MG Tab.CR PO SCH (09:31)
[2019-12-06] MEDS: buPROPion 150 MG Tab.ER PO SCH (09:32)
[2019-12-06] MEDS: Insulin Glarg,Human.Rec.Analog 100 Unit/ML SUBCUT SCH (09:32)
[2019-12-06] MEDS: Thiamine 100 MG Tab PO SCH (09:32)
--- NOTE | 2019-12-06 11:43 | PCM.DCSUM1 ---
Discharge Summary - Hospital Course HPI Initial Comments: This is an 79 year old female with past medical history of atrial fibrillation on Xarelto, diabetes and hypertension who comes to the ED brought via EMS for chest pain and palpitations as well as shortness of breath. As per patient she was in her usual state of health until this morning when she had some visitors and started feeling a strange sensation on her chest after which she decided to go lay down. Once she lay down she started noticing significant chest pain, described as stabbing, located retrosternally without radiation, graded 4-5/10, associated with shortness of breath and palpitations. EMS was called, upon arrival patient had a BP of 69/47 with pulse of 157. En route VS BP 74/50, rate 126. Atrial fibrillation with rapid ventricular response Once in the ED patient with VS 82/61, HR 134x', SatO2 100% on RA Given 5mg bolus of Cardizem Started on Cardizem drip Has been compliant with medications at home EKG with rate between 120-130 PLAN - Continue Cardizem drip - Transition to PO once rate controlled - Request prior echocardiogram - Continue Xarelto Diabetes mellitus, type II Glucose on admission 178 On Lantus 23u AM PLAN - HbA1c - Glucose checks before meals and 2h after - Hypoglycemia protocol - Continue home insulin 12u for now Hypotension in the setting of hypertension BP on admission 82/61 PLAN - Hold home medications for now Depression Denies any suicidal or homicidal ideation Home management with bupropion and trazodone PLAN - Continue home medications Chronic headache On Depakote and Lamotrigine at home No pain right now PLAN - Continue home medications Heart failure, unknown EF No signs of volume overload On Lasix at home PLAN - Hold Lasix due to hypotension - Request prior records PROPHYLAXIS DVT- Continue Xarelto GI- not indicated CODE STATUS: FULL CODE DISPOSITION: Patient will be admitted to the ICU on Cardizem drip for rate control. SOCIAL: Patient lives between [place] and [facility] with house mate Daughter lives across the yard PCP is Dr. Ashby No COVID exposure and has been doing social distancing. Diagnosis: Stroke: No - Discharge Data Discharge Date: 12/06/19 Discharge Disposition: Home, Self-Care 01 Condition: Good - Referral to Home Health Primary Care Physician: PCP Not In Area - Discharge Diagnosis/Problem(s) (1) Normocytic anemia SNOMED Code(s): 859741896 ICD Code: D64.9 - ANEMIA, UNSPECIFIED Status: Acute Current Visit: Yes (2) Acute kidney injury SNOMED Code(s): 50983598, 28741746 ICD Code: N17.9 - ACUTE KIDNEY FAILURE, UNSPECIFIED Status: Acute Current Visit: Yes (3) Atrial fibrillation with rapid ventricular response SNOMED Code(s): 629609762562042 ICD Code: I48.91 - UNSPECIFIED ATRIAL FIBRILLATION Status: Acute Current Visit: Yes (4) Chronic anticoagulation SNOMED Code(s): 643202614 ICD Code: Z79.01 - CARE HOME (CURRENT) USE OF ANTICOAGULANTS Status: Acute Current Visit: Yes (5) Hyperglycemia due to type 2 diabetes mellitus SNOMED Code(s): 777299306555783, 595139295954690 ICD Code: E11.65 - TYPE 2 DIABETES MELLITUS WITH HYPERGLYCEMIA Status: Acute Current Visit: Yes (6) Hyponatremia SNOMED Code(s): 14625564 ICD Code: E87.1 - HYPO-OSMOLALITY AND HYPONATREMIA Status: Acute Current Visit: Yes - Patient Summary/Data Consults: Consultations 12/03/19 22:31 Consult to Case Management/Basket Braider [CONS] Routine OT Evaluation and Treatment [CONS] Routine PT Evaluation and Treatment [CONS] Routine Hospital Course: 12/03/2019day of admission Patient will be admitted to the ICU on Cardizem drip for rate control. - Continue Cardizem drip - Transition to PO once rate controlled - Request prior echocardiogram - Continue Xarelto - HbA1c - Glucose checks before meals and 2h after - Hypoglycemia protocol - Continue home insulin 12u for now - Hold Lasix due to hypotension 12/04/2019 Continued drip throughout the night, tapered down to 5 this AM Symptoms have been resolved VS trend - BP 82-120/53-84 - Tmax 98.5 - HR 74-101 Labs - WBC 8.86 up to 11.57, few reactive lymphocytes - Hb 11.1 down to 10.5 - Na 132 up to 133 - K 3.9 down to 3.5 - GFR 39 down to 36 - Glucose trend 142-165 Heart healthy diet Home management with PRN Cardizem Patient had leg pain and restless leg overnight that resolved with gabapentin 12/05/2019 Patient is off Cardizem drip Cardizem 30 mg IR every 8 hours is causing heart rates in the low 40s and 30s overnight. 5:00 dose had to be held. Sodium increased to 134. Renal function improved with an estimated GFR of 43 and creatinine of 1.2. Potassium, magnesium, and phosphorus are normal WBC back to normal Tolerating diet. Back in sinus rhythm. No complaints of leg pain. Normocytic anemia likely secondary to anemia of chronic disease and renal insufficiency 12/06/2019day of discharge Metoprolol was stopped because of bradycardia. Echocardiogram was done today. All blood pressure medications were stopped during hospitalization. Blood pressure has been in the low 140s systolic. Heart rate is still in the 50s and 60s off of rate control medication. Electrolytes are normal. Appointment has been made for patient to be seen by cardiology. We increased her Xarelto to 15 mg daily. - Patient Instructions Diet: Diabetic Diet Activity: As Tolerated Driving: Do Not Drive Other/Special Instructions: Establish with educational administrator. Follow-up with primary care provider. Echocardiogram results are pending at time of discharge. If you develop palpitations, shortness of breath, chest pain return to the emergency department. - Discharge Plan *PRESCRIPTION DRUG MONITORING PROGRAM REVIEWED*: No *COPY OF PRESCRIPTION DRUG MONITORING REPORT IN PATIENT SUNI: No Prescriptions/Med Rec: RX: Rivaroxaban [Xarelto] 15 mg PO WITHDINNER #30 tablet Home Medications: Home Meds RX: Cholecalciferol (Vitamin D3) [Vitamin D3] 2,000 units PO DAILY 12/03/19 [History] RX: Denosumab [Prolia] 60 mg IM ASDIRECTED 12/03/19 [History] RX: Divalproex Sodium [Depakote] 250 mg PO BID 12/03/19 [History] RX: Furosemide [Lasix] 40 mg PO DAILY 12/03/19 [History] RX: Insulin Glargine,Hum.Rec.Anlog [Lantus Solostar] 18 units SUBCUT DAILY 12/03/19 [History] RX: Ipratropium [Atrovent 0.06% Nasal [place]] 2 puff CARI QID PRN 12/03/19 [History] RX: Morphine Sulfate [Morphine Sulfate ER] 15 mg PO DAILY 12/03/19 [History] RX: Omeprazole 20 mg PO DAILY PRN 12/03/19 [History] RX: Ondansetron [Zofran] 4 mg PO TID PRN 12/03/19 [History] RX: Thiamine HCl [Vitamin B-1] 50 mg PO DAILY 12/03/19 [History] RX: buPROPion [buPROPion XL] 150 mg PO DAILY 12/03/19 [History] RX: dilTIAZem HCL [Cardizem] 30 mg PO BID PRN 12/03/19 [History] RX: lamoTRIgine [Lamotrigine] 50 mg PO BEDTIME 12/03/19 [History] RX: polyethylene glycoL 3350 [MiraLAX] 17 gm PO DAILY PRN 12/03/19 [History] RX: traZODone HCl [Trazodone HCl] 25 mg PO BEDTIME PRN 12/03/19 [History] RX: Insulin Glarg,Human.Rec.Analog [Lantus] 18 unit SUBCUT DAILY ml 12/06/19 [Rx] RX: Morphine Sulfate [Morphine Sulfate ER] 30 mg PO BEDTIME 12/06/19 [History] RX: Rivaroxaban [Xarelto] 15 mg PO WITHDINNER #30 tablet 12/06/19 [Rx] Oxygen Therapy Mode: Room Air Patient Handouts: Type 2 Diabetes Mellitus, Diagnosis, Adult, Hypotension, Hjom-el-Scmi, Hyperglycemia, Dwzj-ed-Oezo, Heart Failure, Diagnosis, Living With Heart Failure, Atrial Fibrillation, Wrya-qe-Recl Forms: ED Department Discharge Referrals: Angel Ashby MD [Ordering Only Provider] - Pan Morales MD [Ordering Only Provider] - 01/08/20 12:00 pm (Appointment scheduled with educational administrator at [facility] in [place], [place]. Please come 15minutes early for labwork.) - Discharge Summary/Plan Comment DC Time >30 min.: Yes Discharge Summary/Plan Comment: Discharged to home in good condition. Use Cardizem 30 mg as needed for elevated heart rate per your previous instructions. Follow-up with your primary care provider next week and establish with educational administrator. - General Info Date of Service: 12/06/19 Admission Dx/Problem (Free Text: Atrial fibrillation with rapid ventricular rate Subjective Update: Patient is doing well. No complaints. Appetite is good. Had difficulty sleeping because of leg pain. Apparently, her extended release morphine 30 mg at night was not renewed. - Review of Systems General: Reports: No Symptoms HEENT: Reports: No Symptoms Pulmonary: Reports: No Symptoms Cardiovascular: Reports: No Symptoms Gastrointestinal: Reports: No Symptoms Musculoskeletal: Reports: Leg Pain Skin: Reports: No Symptoms Psychiatric: Reports: No Symptoms - Patient Data Vitals - Most Recent: Last Vital Signs Temp 97.9 F 12/06/19 08:55 Pulse 65 12/05/19 09:10 Resp 20 12/06/19 08:55 BP 134/61 12/06/19 08:55 Pulse Ox 98 12/06/19 08:55 Weight - Most Recent: 73.618 kg I&O - Last 24 hours: Intake & Output 12/05/19 12/06/19 12/06/19 22:59 06:59 14:59 Intake Total 620 800 Output Total 450 300 Balance 170 500 Lab Results - Last 24 hrs: Laboratory Results - last 24 hr 12/05/19 12/05/19 12/06/19 Range/Units 15:55 21:05 05:00 WBC 11.78 H (3.98-10.04) K/mm3 RBC 3.53 L (3.98-5.22) M/mm3 Hgb 10.3 L (11.2-15.7) gm/dl Hct 32.9 L (34.1-44.9) % MCV 93.2 (79.4-94.8) fl MCH 29.2 (25.6-32.2) pg MCHC 31.3 L (32.2-35.5) g/dl RDW Std Deviation 44.9 (36.4-46.3) fL Plt Count 386 H (182-369) K/mm3 MPV 11.0 (9.4-12.3) fl Neut % (Auto) 50.3 (34.0-71.1) % Lymph % (Auto) 30.2 (19.3-51.7) % [place] % (Auto) 16.4 H (4.7-12.5) % Eos % (Auto) 2.0 (0.7-5.8) Baso % (Auto) 0.8 (0.1-1.2) % Neut # (Auto) 5.94 (1.56-6.13) K/mm3 Lymph # (Auto) 3.56 (1.18-3.74) K/mm3 [place] # (Auto) 1.93 H (0.24-0.36) K/mm3 Eos # (Auto) 0.23 (0.04-0.36) K/mm3 Baso # (Auto) 0.09 H (0.01-0.08) K/mm3 Manual Slide Review Abnormal smear Sodium (136-145) mEq/L Potassium (3.5-5.1) mEq/L Chloride (98-107) mEq/L Carbon Dioxide (21-32) mEq/L Anion Gap (5-15) BUN (7-18) mg/dL Creatinine (0.55-1.02) mg/dL Est Cr Clr Drug Dosing mL/min Estimated GFR (MDRD) (>60) mL/min BUN/Creatinine Ratio (14-18) Glucose (83-115) mg/dL POC Glucose 153 H 168 H (83-110) mg/dL Calcium (8.5-10.1) mg/dL Magnesium (1.8-2.4) mg/dl 12/06/19 12/06/19 Range/Units 05:00 08:42 WBC (3.98-10.04) K/mm3 RBC (3.98-5.22) M/mm3 Hgb (11.2-15.7) gm/dl Hct (34.1-44.9) % MCV (79.4-94.8) fl MCH (25.6-32.2) pg MCHC (32.2-35.5) g/dl RDW Std Deviation (36.4-46.3) fL Plt Count (182-369) K/mm3 MPV (9.4-12.3) fl Neut % (Auto) (34.0-71.1) % Lymph % (Auto) (19.3-51.7) % Newton % (Auto) (4.7-12.5) % Eos % (Auto) (0.7-5.8) Baso % (Auto) (0.1-1.2) % Neut # (Auto) (1.56-6.13) K/mm3 Lymph # (Auto) (1.18-3.74) K/mm3 [place] # (Auto) (0.24-0.36) K/mm3 Eos # (Auto) (0.04-0.36) K/mm3 Baso # (Auto) (0.01-0.08) K/mm3 Manual Slide Review Sodium 135 L (136-145) mEq/L Potassium 4.0 (3.5-5.1) mEq/L Chloride 102 (98-107) mEq/L Carbon Dioxide 21 (21-32) mEq/L Anion Gap 16.0 H (5-15) BUN 23 H (7-18) mg/dL Creatinine 1.1 H (0.55-1.02) mg/dL Est Cr Clr Drug Dosing 29.30 mL/min Estimated GFR (MDRD) 48 (>60) mL/min BUN/Creatinine Ratio 20.9 H (14-18) Glucose 117 H (83-115) mg/dL POC Glucose 103 (83-110) mg/dL Calcium 8.2 L (8.5-10.1) mg/dL Magnesium 2.2 (1.8-2.4) mg/dl Med Orders - Current: Current Medications Acetaminophen (Tylenol) 650 mg PO Q4H PRN PRN Reason: Pain/Fever Last Admin: 12/06/19 09:33 Dose: 650 mg Documented by: Bupropion HCl (Wellbutrin Xl) 150 mg PO DAILY [facility] Last Admin: 12/06/19 09:32 Dose: 150 mg Documented by: Divalproex Sodium (Divalproex Sodium) 250 mg PO BID [facility] Last Admin: 12/06/19 09:31 Dose: 250 mg Documented by: Furosemide (Lasix) 40 mg PO DAILY [facility] Last Admin: 12/06/19 09:31 Dose: 40 mg Documented by: Insulin Glargine (Lantus) 18 unit SUBCUT DAILY [facility] Last Admin: 12/06/19 09:32 Dose: 18 units Documented by: Insulin Human Lispro (Humalog) 0 unit SUBCUT QIDACANDBED [facility]; Protocol Last Admin: 12/06/19 08:47 Dose: Not Given Documented by: Lamotrigine (Lamotrigine) 50 mg PO BEDTIME [facility] Last Admin: 12/05/19 21:28 Dose: 50 mg Documented by: Morphine Sulfate (Morphine 10 Mg/0.5 Ml Oral Syringe) 5 mg PO Q8HR [facility] Last Admin: 12/06/19 05:02 Dose: 5 mg Documented by: Morphine Sulfate (Ms Contin) 15 mg PO DAILY PRN PRN Reason: Pain Last Admin: 12/06/19 11:08 Dose: 15 mg Documented by: Ondansetron HCl (Zofran) 4 mg IV Q6H PRN PRN Reason: Nausea/Vomiting Ondansetron HCl (Zofran Odt) 4 mg PO TID PRN PRN Reason: Nausea Polyethylene Glycol (Miralax) 17 gm PO DAILY PRN PRN Reason: Constipation Rivaroxaban (Xarelto) 15 mg PO WITHDINNER [facility] Last Admin: 12/05/19 17:33 Dose: 15 mg Documented by: Thiamine HCl (Vitamin B-1) 50 mg PO DAILY [facility] Last Admin: 12/06/19 09:32 Dose: 50 mg Documented by: Trazodone HCl (Trazodone) 50 mg PO BEDTIME PRN PRN Reason: Insomnia Last Admin: 12/05/19 21:26 Dose: 50 mg Documented by: Discontinued Medications Diltiazem HCl (Cardizem) 5 mg IVPUSH ONETIME STA Stop: 12/03/19 19:22 Last Admin: 12/03/19 19:33 Dose: 5 mg Documented by: Diltiazem HCl (Cardizem) 30 mg PO Q8H [facility] Last Admin: 12/05/19 06:33 Dose: Not Given Documented by: Gabapentin (Neurontin) 200 mg PO ONETIME STA Stop: 12/04/19 04:29 Last Admin: 12/04/19 04:35 Dose: 200 mg Documented by: Diltiazem HCl 100 mg/ Sodium (Chloride) 100 mls @ 10 mls/hr IV TITRATE [facility]; Protocol Last Titration: 12/03/19 22:10 Dose: 15 mg/hr, 15 mls/hr Documented by: Sodium Chloride (Normal Saline) 500 mls @ 1,000 mls/hr IV .BOLUS ONE Stop: 12/03/19 19:58 Last Admin: 12/03/19 19:39 Dose: 1,000 mls/hr Documented by: Sodium Chloride (Normal Saline) 500 mls @ 1,000 mls/hr IV .BOLUS ONE Stop: 12/03/19 22:23 Last Admin: 12/03/19 22:33 Dose: 1,000 mls/hr Documented by: Diltiazem HCl 100 mg/ Sodium (Chloride) 100 mls @ 15 mls/hr IV TITRATE ALIYAH; Protocol Last Titration: 12/04/19 14:05 Dose: 0 mg/hr, 0 mls/hr Documented by: Lorazepam (Ativan) 0.5 mg IVPUSH ONETIME ONE Stop: 12/04/19 02:33 Last Admin: 12/04/19 02:46 Dose: 0.5 mg Documented by: Metoprolol Tartrate (Lopressor) 12.5 mg PO Q12H ALIYAH Last Admin: 12/05/19 20:08 Dose: Not Given Documented by: - Exam General: Reports: Alert, Oriented HEENT: Reports: Pupils Equal, Mucous Membr. Moist/[place] Neck: Reports: Supple Lungs: Reports: Clear to Auscultation, Normal Respiratory Effort Cardiovascular: Reports: Regular Rhythm, Bradycardia GI/Abdominal Exam: Normal Bowel Sounds, Soft, Non-Tender, No Distention Extremities: Normal Inspection, Normal Range of Motion, Non-Tender, No Pedal Edema, Normal Capillary Refill Psy/Mental Status: Reports: Alert, Normal Affect, Normal Mood *Q Meaningful Use (DIS) - VTE *Q VTE Anticoagulation Contraindications: Medical/Procedure Contrai
== END 2019-12-06 13:10 | disposition home or self-care (01) | DRG 309 ==
LOC: JD.ED 18:43 → JD.ICU 22:37 → UNDOADMIN 23:09 → JD.ICU 23:09 → UNDODISIN 12-06 13:10
PROVIDERS: ADMIT Family Medicine; ATTEND Family Medicine
DX: I48.91 Unspecified atrial fibrillation (principal); N17.9 Acute kidney failure, unspecified; E87.1 Hypo-osmolality and hyponatremia; I48.0 Paroxysmal atrial fibrillation; I95.9 Hypotension, unspecified; E11.65 Type 2 diabetes mellitus with hyperglycemia; R51 Headache; D64.9 Anemia, unspecified; I11.0 Hypertensive heart disease with heart failure; I50.9 Heart failure, unspecified; K21.9 Gastro-esophageal reflux disease without esophagitis; M19.90 Unspecified osteoarthritis, unspecified site; E11.40 Type 2 diabetes mellitus with diabetic neuropathy, unspecified; E11.21 Type 2 diabetes mellitus with diabetic nephropathy; F32.9 Major depressive disorder, single episode, unspecified; F41.9 Anxiety disorder, unspecified; E66.9 Obesity, unspecified; Z85.51 Personal history of malignant neoplasm of bladder; Z85.07 Personal history of malignant neoplasm of pancreas; Z98.42 Cataract extraction status, left eye; Z98.41 Cataract extraction status, right eye; Z88.1 Allergy status to other antibiotic agents; Z88.8 Allergy status to other drugs, medicaments and biological substances; Z91.013 Allergy to seafood; Z79.01 Long term (current) use of anticoagulants; Z79.4 Long term (current) use of insulin; Z79.899 Other long term (current) drug therapy; Z20.828 Contact with and (suspected) exposure to other viral communicable diseases
CPT/HCPCS: 36415; 71046; 80053; 83735; 83880; 84484; 85025; 93005; 96361; 96365; 96366; 96376; 99285; J3490 ×2; J7030 ×2; J7050; U0002; 80048; 82550; 82962; 83036; 84100; 93010; 93306; 97110-GP; 97112-GP; 97116-GP; 97162-GP; 97165-GO; 99222; 99232; 99239; A9270-GY; J1815-GY; J2060